=== PATIENT | male | born 1995 | race Hispanic/Latino ===

== ENCOUNTER 2017-02-14 15:48 | Emergency (ER) | payer BC ==
[2017-02-14] MEDS ORDERED: diphenhydrAMINE 50 MG CAP ONE (16:03)
[2017-02-14] MEDS ORDERED: diphenhydrAMINE 50 MG/ML VIAL ONE (16:04)
[2017-02-14] MEDS ORDERED: Famotidine/PF 20 mg/2ml Vial ONE (16:04)
[2017-02-14] MEDS ORDERED: Water For Inject, Bacteriostat 30 ML ONE (16:04)
[2017-02-14] MEDS ORDERED: methylPREDNISolone Sod Succ/PF 125 MG/2 ML VIAL ONE (16:04)
== END 2017-02-14 19:53 | disposition home or self-care (01) ==
LOC: ERS 15:48
DX: T78.40XA Allergy, unspecified, initial encounter (principal); E66.9 Obesity, unspecified
CPT/HCPCS: 96361; 96374; 96375; J1200; J2930; S0028

== ENCOUNTER 2019-10-30 22:02 | Observation (INO) | payer BC, OTHER ==
[2019-10-30 22:30] LABS: Bilirubin 1+ (Negative); Blood, Urine Negative (Negative); Clarity Turbid (Clear); Glucose, Urine (Dipstick) Normal (Negative); Ketone, Urine 10 mg/dL (Negative); Leukocyte Negative Leu/uL (Negative); Nitrite Negative (Negative); Protein, Urine (Dipstick) 70 mg/dL (Neg-Trace); RBC/HPF 0-3 HPF (0-3); Renal Epithelial 0-3 HPF (None Seen); Specific Gravity, Urine 1.029 (1.002-1.036); Squamous Epithelial None Seen HPF (0-3); Urobilinogen 3 mg/dL (Less than 2); pH, Urine 5.5 (5.0-9.0)
[2019-10-30 22:34] LABS: Bacteria/HPF 2+ HPF (None Seen)
[2019-10-30 22:35] LABS: Calcium Oxalate Crystals 2+ HPF (None Seen); Mucous/LPF 2+ LPF (<2+)
[2019-10-30 22:57] LABS: Hemoglobin 16.3 g/dL (14.0-18.0); Mean Corpuscular HGB CONC 34.6 g/dL (32.0-36.0); Mean Corpuscular Hemoglobin 31.1 pg (27.0-31.0); Mean Platelet Volume 9.9 fL (7.4-10.4); Platelet Count 245 thou/uL (130-400); RBC Distribution Width 12.2 % (11.5-14.5); Red Blood Cell (RBC) Count 5.24 mill/uL (4.70-6.10); White Blood Cell (WBC) Count 18.8 thou/uL (4.8-10.8)
[2019-10-30 23:15] LABS: ALT (SGPT) 98 U/L (8-55); AST (SGOT) 44 U/L (5-34); Albumin 5.3 g/dL (3.5-5.0); Alkaline Phosphatase 146 U/L (40-110); Anion Gap 20 mmol/L (10-20); BUN (Urea Nitrogen) 21 mg/dL (8.9-20.6); Band 19 % (5-11); Bilirubin, Total 0.8 mg/dL (0.2-1.2); CK (CPK) 277 U/L (30-200); Calc. Creatinine Clearance 0 mL/min (70-130); Calcium 10.4 mg/dL (7.8-10.44); Carbon Dioxide 22 mmol/L (22-29); Chloride 96 mmol/L (98-107); Estimated GFR-MDRD 30; Globulin 4.4 g/dL (2.4-3.5); Glucose 119 mg/dL (70-105); Lymphocytes 7 % (21-51); MDiff Complete? YES; Metamyelocyte 1 % (0-0); Monocytes 5 % (0-10); Neutrophil 68 % (42-75); Platelet Morphology Comment Appears Adequate; Potassium 4.5 mmol/L (3.5-5.1); Protein, Total 9.7 g/dL (6.0-8.3); Sodium 133 mmol/L (136-145)
--- NOTE | 2019-10-31 00:24 | PDOC.FPRHP ---
- History of Present Illness Chief Complaint: Overheated History of Present Illness: Patient is a 23 year old male with no past medical history who presents to the ED with complaints of heat exhaustion. 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 He reports staying hydrated during the day but notes becoming overheated and dizzy during work. He denies syncope or near syncope. When he returned home, he began to experience generalized weakness, fatigue, nausea, vomiting, muscle cramps and SOB. Upon arrival to the ED, he says his symptoms have all resolved except for generalized weakness and fatigue. He denies headache, vision changes, chest pain, abdominal pain, dysuria, hematuria and edema. ED Course: Patient was afebrile. BP 110s systolic. WBC 18.8. Creatinine 2.71. BUN 21. CK 277. UA showed protein, ketones and hyaline casts. Received 2L NS. - Allergies/Adverse Reactions Allergies Allergy/AdvReac Type Severity Reaction Status Date / Time No Known Drug Allergies Allergy Unverified 10/31/19 00:32 - Home Medications Medication Instructions Recorded Confirmed Type No Known 10/31/19 10/31/19 History - History PMHx: None PSHx: None FHx: Noncontributory Social: Works in construction. Denies tobacco use, alcohol use and drug use. - Review of Systems General: reports: fatigue. denies: fever/chills, weight/appetite/sleep changes Eyes: denies: eye pain, vision changes ENT: denies: nasal congestion, rhinorrhea Respiratory: denies: cough, congestion, shortness of breath Cardiovascular: denies: chest pain, palpitation, edema Gastrointestinal: denies: nausea, vomiting, abdominal pain Genitourinary: reports: other (hematuria). denies: dysuria Skin: denies: rashes, jaundice Musculoskeletal: denies: stiffness, arthritis/arthralgias Neurological: reports: weakness. denies: syncope, seizure Psychological: denies: anxiety, depression - Vital signs BP: [112/57] HR: [92] RR: [17] Tmax: [98.7] Pox: [98]% on [RA] Wt: [95.25kg] - Physical Exam Constitutional: NAD, awake, alert and oriented HEENT: normocephalic and atraumatic, conjunctiva clear, MMM Neck: supple, trachea midline Chest: no-tender to palpation, no lesions Heart: RRR, normal S1/S2, no edema Lungs: CTAB, no respiratory distress Abdomen: soft, non-tender, bowel sounds present Musculoskeletal: normal structure, ROM grossly normal Neurological: no focal deficit, CN II-XII intact Skin: good turgor, capillary refill <2 seconds, no jaundice Heme/Lymphatic: no unusual bruising or bleeding Psychiatric: normal mood and affect FMR H&P: Results - Labs Result Diagrams: 10/30/19 22:42 10/30/19 22:42 Lab results: WBC 18.8 thou/uL (4.8-10.8) H 10/30/19 22:42 Hgb 16.3 g/dL (14.0-18.0) 10/30/19 22:42 Hct 47.2 % (42.0-52.0) 10/30/19 22:42 MCV 90.0 fL (78.0-98.0) 10/30/19 22:42 Plt Count 245 thou/uL (130-400) 10/30/19 22:42 Band Neuts % (Manual) 19 % (5-11) H 10/30/19 22:42 Sodium 133 mmol/L (136-145) L 10/30/19 22:42 Potassium 4.5 mmol/L (3.5-5.1) 10/30/19 22:42 Chloride 96 mmol/L (98-107) L 10/30/19 22:42 Carbon Dioxide 22 mmol/L (22-29) 10/30/19 22:42 BUN 21 mg/dL (8.9-20.6) H 10/30/19 22:42 Creatinine 2.71 mg/dL (0.7-1.3) H 10/30/19 22:42 Glucose 119 mg/dL (70-105) H 10/30/19 22:42 Calcium 10.4 mg/dL (7.8-10.44) 10/30/19 22:42 Total Bilirubin 0.8 mg/dL (0.2-1.2) 10/30/19 22:42 AST 44 U/L (5-34) H 10/30/19 22:42 ALT 98 U/L (8-55) H 10/30/19 22:42 Alkaline Phosphatase 146 U/L (40-110) H 10/30/19 22:42 Creatine Kinase 277 U/L (30-200) H 10/30/19 22:42 Serum Total Protein 9.7 g/dL (6.0-8.3) H 10/30/19 22:42 Albumin 5.3 g/dL (3.5-5.0) H 10/30/19 22:42 Urine Ketones 10 mg/dL (Negative) A 10/30/19 22:08 Urine Blood Negative (Negative) 10/30/19 22:08 Urine Nitrite Negative (Negative) 10/30/19 22:08 Ur Leukocyte Esterase Negative Jessica/uL (Negative) 10/30/19 22:08 Urine RBC 0-3 HPF (0-3) 10/30/19 22:08 Urine WBC 4-6 HPF (0-3) A 10/30/19 22:08 Ur Squamous Epith Cells None Seen HPF (0-3) 10/30/19 22:08 Urine Bacteria 2+ HPF (None Seen) A 10/30/19 22:08 FMR H&P: A/P - Plan MARS 2/2 dehydration Creatinine 2.71. BUN 21. CK 277. UA showed protein, ketones and hyaline casts. Received 2L NS. -LR @ 150 for maintanence -Encourage PO hydration -CMP in am Possible heat exhaustion Patient's symptoms of nausea, vomiting, muscle cramps, dizziness and fatigue are consistent with heat exhaustion. However cannot confirm diagnosis due to lack of temperature obtained during symptom onset. -Management per above Transaminitis 2/2 dehydration AST 44. ALT 98. Alk phos 146. -Management per above -Monitor with CMP in am PCP: None, [facility] call Code: Full Dispo: admit to medical obs for hydration, expected LOS < 48 hours FMR H&P: Upper Level - Plan Date/Time: 10/31/19 0023 Ashley Mast, have evaluated this patient and agree with findings/plan as outlined by hospitality internship resident. Pertinent changes/additions are listed here. 23 yo M with no PMH presents for weakness, body cramping, nausea. 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 [place] dizzy, no syncope. Due to cramping he decided to get evaluated. No SOB, CP, fever, diarrhea, pain. He is feeling better since being in the ED. Given 2L in ED PE Gen: NAD, well appearing Heart: RRR, no murmur, normal cap refill Lungs: CTAB Ext: no edema 23 yo M presents for weakness after being out in the heat and is admitted for MARS and dehydration MARS 2/2 dehydration -tachycardia, pulse 110s but normal BP on admission. Temp normal. -Continue IVF LR @ 150. Encouraged oral hydration as well. -Initial Cr 2.71, recheck with am labs. CK was 277. Transaminitis -AST 44, ALT 98 -Likely 2/2 above. No medical history, no alcohol use, recheck in am Leukocytosis -Likely reactive, did have 19% bands. Denies any symptoms concerning for infection. Diet: Regular IVF: LR@150 Ppx: Kamini 0, low risk, not indicated Attending: Judy PCP: none Dispo: admit to medical floor for observation, expected stay <48hrs
[2019-10-31] MEDS ORDERED: Ondansetron ODT 4 MG TAB PO PRN (00:25)
[2019-10-31] MEDS ORDERED: Acetaminophen 325 MG TAB PO PRN (00:25)
[2019-10-31] MEDS ORDERED: Ondansetron PF 4 MG/2 ML Vial IVP PRN (00:25)
[2019-10-31] MEDS: Lactated Ringer's 1,000 ML IV SCH ×2 (01:02→08:00)
[2019-10-31 01:07] VITALS: BMI 38.3
[2019-10-31 06:25] LABS: ALT (SGPT) 66 U/L (8-55); AST (SGOT) 29 U/L (5-34); Albumin 3.9 g/dL (3.5-5.0); Alkaline Phosphatase 105 U/L (40-110); Anion Gap 14 mmol/L (10-20); BUN (Urea Nitrogen) 18 mg/dL (8.9-20.6); Bilirubin, Total 0.6 mg/dL (0.2-1.2); Calc. Creatinine Clearance 115 mL/min (70-130); Calcium 8.6 mg/dL (7.8-10.44); Carbon Dioxide 23 mmol/L (22-29); Chloride 103 mmol/L (98-107); Estimated GFR-MDRD 59; Globulin 3.2 g/dL (2.4-3.5); Glucose 108 mg/dL (70-105); Potassium 3.6 mmol/L (3.5-5.1); Protein, Total 7.1 g/dL (6.0-8.3); Sodium 136 mmol/L (136-145)
[2019-10-31 11:27] VITALS: BP 104/69; TEMP 98.1
[2019-10-31 16:04] LABS: SARS-CoV-2 MS2 Positive; SARS-CoV-2 N Gene Negative; SARS-CoV-2 S Gene Negative; SARS-CoV-2 by NAA Not Detected (NotDetected); SARS-CoV-2 orf1ab Negative
--- NOTE | 2019-10-31 19:35 | HP ---
I have examined the patient. I have discussed the case with Dr. Saloni Ruiz. HISTORY OF PRESENT ILLNESS: Briefly, Mr. 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 He became dizzy, had some generalized weakness, cramps, nausea, vomiting, presented to the emergency room. He was afebrile at that time, but noted to have some heat exhaustion. He was admitted for fluids and observation. PHYSICAL EXAMINATION: VITAL SIGNS: His blood pressure is 112/60, his heart rate was 80, respirations 16, he is afebrile, room air pulse ox 98%. GENERAL: At the time of my exam, he is completely awake, alert, in no distress. EAR, NOSE, AND THROAT: Mucous membranes now moist. NECK: Supple. CARDIAC: Heart rhythm regular. No gallop or murmur noted. LUNGS: Clear. ABDOMEN: Flat and soft without guarding or rebound. NEUROLOGIC: No focal deficits. SKIN: Good skin turgor. LABORATORY DATA: CBC; 18,000 white count with a hemoglobin 16.3, hematocrit 47.2. Chemistries; sodium 133, potassium 4.5, chloride 96, bicarb 22, BUN 21. Creatinine 2.71 later in the morning, down to 1.49. His initial transaminases, AST 44, dropping to 29; ALT 98, dropping to 96; alkaline phosphatase 146, dropping to 105. CK was slightly elevated at 277. ASSESSMENT: Heat exhaustion. PLAN: Admit, IV fluids, observation. Repeat labs. The patient was rehydrated by the next morning and was ready for discharge. He did sustain a mild MARS secondary to his heat exhaustion. ADMISSION DIAGNOSES: 1. Volume depletion secondary to heat exhaustion. 2. Heat exhaustion. 3. Acute kidney injury secondary to above. Job ID: [id number]
--- NOTE | 2019-11-01 12:49 | DIS ---
DATE OF ADMISSION: 10/30/2019 DATE OF DISCHARGE: 10/31/2019 RESIDENT: Lance Castaneda MD ADMITTING ATTENDING: Cecil Marrero MD DISCHARGE ATTENDING: Sudheer Lloyd MD CONSULTS: None. PROCEDURES: None. PRIMARY DIAGNOSIS: Acute kidney injury. SECONDARY DIAGNOSIS: Dehydration, heat exposure. DISCHARGE MEDICATIONS: Tylenol 650 mg p.o. q.4 hours p.r.n. HISTORY OF PRESENT ILLNESS/HOSPITAL COURSE: The patient is a 23-year-old male with no past medical history, who presented to the ER due to weakness. The patient reports that he had been working outside all day and began to have some cramping and lightheadedness and weakness toward the end of the day. The patient went home. Symptoms somewhat resolved except for weakness. The patient came in due to persistent weakness. In ER, the patient was found to have an MARS with serum creatinine of 2.7. The patient was given 2 L normal saline in the ER. The patient was afebrile with stable vital signs. The patient was given fluids while admitted, repeat blood work showed decrease of serum creatinine to 1.4. There is a mild transaminitis in the ER that resolved on repeat labs and was likely due to hemoconcentration. This patient was discharged with directions to stay hydrated while working outside and take it easy for the next couple of days. DISPOSITION: Stable. DISCHARGE INSTRUCTIONS: 1. Location: Home. 2. Diet: No restrictions, as tolerated. 3. Activity: As tolerated, limit heat exposure for the next few days. 4. Followup. The patient should follow up with PCP within 1 to 2 weeks, the patient had no PCP on record and was given a list of PCPs to choose from. Told the patient that he could call our clinic to set up an appointment if necessary. Job ID: [id number] [id number]
[2019-11-01 21:05] LABS: Chlam.trachomatis by PCR,Urine Not Detected (NotDetected)
== END 2019-10-31 12:41 | disposition home or self-care (01) ==
LOC: ERS 22:02 → T4-A 23:32
PROVIDERS: ADMIT Family Medicine; ATTEND Family Medicine
DX: T67.5XXA Heat exhaustion, unspecified, initial encounter (principal); E86.0 Dehydration; N17.9 Acute kidney failure, unspecified; E86.9 Volume depletion, unspecified; R74.0 Nonspecific elevation of levels of transaminase and lactic acid dehydrogenase [LDH]; D72.829 Elevated white blood cell count, unspecified; Z20.828 Contact with and (suspected) exposure to other viral communicable diseases; X30.XXXA Exposure to excessive natural heat, initial encounter; Y93.H3 Activity, building and construction; Y99.0 Civilian activity done for income or pay
CPT/HCPCS: 36415; 80053; 81003; 81015; 82550; 85025; 87491; 87591; 87635; 96360; 96361; G0378; U0003